=== PATIENT | male | born 1985 | race Caucasian/White ===

== ENCOUNTER 2021-07-29 19:29 | Emergency (ER) | payer MEDICARE, OTHER ==
[2021-07-29] MEDS ORDERED: diphenhydrAMINE 50 MG/ML 1 ML VIAL IVP STA (19:37)
[2021-07-29] MEDS ORDERED: KETOROLAC 15 MG/ML 1 ML VIAL IM STA (19:37)
[2021-07-29 19:40] VITALS: RESP 18; TEMP 97.9
[2021-07-29 19:59] LABS: Basophils # (A) 0.1 k/uL (0-0.2); Basophils % (A) 1 %; Eosinophils # (A) 0.3 k/uL (0-0.7); Eosinophils % (A) 7 %; HCT 38.7 % (39.0-53.0); HGB 12.4 gm/dL (13.0-17.5); Lymphocytes # (A) 2.3 k/uL (1.0-4.8); Lymphocytes % (A) 48 %; MCH 27.8 pg (25.0-35.0); MCHC 31.9 g/dL (31.0-37.0); MCV 87.1 fL (80.0-100.0); Mean Platelet Volume 7.4; Monocytes # (A) 0.2 k/uL (0-1.0); Monocytes % (A) 5 %; Neutrophils # (A) 1.8 k/uL (1.3-7.7); Neutrophils % (A) 37 %; Platelet Count 188 k/uL (150-450); RBC 4.44 m/uL (4.30-5.90); RDW 13.1 % (11.5-15.5); WBC 4.8 k/uL (3.8-10.6)
[2021-07-29 20:09] LABS: Partial Thromboplastin Time 24.7 sec (22.0-30.0); Prothrombin Time 10.4 sec (9.0-12.0)
[2021-07-29 20:15] LABS: ALT 35 U/L (4-49); AST 35 U/L (17-59); African American GFR (CKD) >90 (>60 ml/min/1.73 sqM); Albumin 4.2 g/dL (3.5-5.0); Alkaline Phosphatase 82 U/L (38-126); Anion Gap 6 mmol/L; Blood Urea Nitrogen 20 mg/dL (9-20); Carbon Dioxide 32 mmol/L (22-30); Chloride 104 mmol/L (98-107); Glucose 60 mg/dL (74-99); Lipase 51 U/L (23-300); Magnesium 2.3 mg/dL (1.6-2.3); Non-African American GFR(CKD) >90 (>60 ml/min/1.73 sqM); Potassium 3.9 mmol/L (3.5-5.1); Sodium 142 mmol/L (137-145); Total Bilirubin 0.2 mg/dL (0.2-1.3); Total Protein 7.3 g/dL (6.3-8.2)
--- NOTE | 2021-07-29 20:32 | XR ---
EXAMINATION TYPE: XR chest 2V DATE OF EXAM: 07/29/2021 COMPARISON: NONE HISTORY: Chest pain TECHNIQUE: 2 views FINDINGS: Heart and mediastinum are normal. Lungs are clear. Diaphragm is normal. Bony thorax appears normal. IMPRESSION: Normal chest
--- NOTE | 2021-07-29 20:38 | ED ---
Chest Pain HPI - General Chief Complaint: Chest Pain Stated Complaint: Chest Pain Source: EMS Mode of arrival: EMS - History of Present Illness Initial Comments: 35-year-old male with past medical history of polysubstance abuse presents to the emergency department from [facility]. Patient began having chest pain around 6:30 PM. He describes it as a sharp substernal pain with radiation to his left arm. 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 Denies history of coronary disease. No family history of sudden cardiac . Denies pleuritic chest pain. Nonreproducible outpatient. No associated fevers, chills or cough. No calf pain or swelling. No history of DVT or PE. No other alleviating, precipitating or modifying factors - Related Data Home Medications Medication Instructions Recorded Confirmed ARIPiprazole [Abilify] 20 mg PO HS 07/29/21 07/29/21 Acetaminophen [Tylenol] 650 mg PO TID PRN 07/29/21 07/29/21 Buprenorphine HCl/Naloxone HCl 1 tab SUBLINGUAL BID@0615,1630 07/29/21 07/29/21 [Buprenorphine-Nalox 8-2 mg Tab] Calcium, Magnesium, Zinc, With 1 tab PO TID PRN 07/29/21 07/29/21 Vitamin D Chlorpheniramine Maleate 4 mg PO Q4H PRN 07/29/21 07/29/21 Docusate [Colace] 100 mg PO BID PRN 07/29/21 07/29/21 Hyoscyamine Sulfate [Levsin] 0.125 mg PO QID PRN 07/29/21 07/29/21 Ibuprofen [Motrin Ib] 600 mg PO Q6H PRN 07/29/21 07/29/21 Mag Hydrox/Aluminum Hyd/Simeth 30 ml PO Q4H PRN 07/29/21 07/29/21 [Mylanta Maximum Strength Liq] Magnesium Hydroxide [Milk of 2,400 mg PO BID PRN 07/29/21 07/29/21 Magnesia] Mirtazapine [Remeron] 15 - 30 mg PO HS 07/29/21 07/29/21 Nicotine 21Mg/24Hr Patch [Habitrol] 1 patch TRANSDERM DAILY@0615 07/29/21 07/29/21 OLANZapine [ZyPREXA] 10 mg PO HS@2100 07/29/21 07/29/21 Pantoprazole [Protonix] 40 mg PO HS@2100 07/29/21 07/29/21 buPROPion HCL [Wellbutrin SR] 200 mg PO BID@0615,1630 07/29/21 07/29/21 busPIRone HCl [Buspar] 20 mg PO BID@0615,1630 07/29/21 07/29/21 ondansetron HCL [Zofran] 8 mg PO QID PRN 07/29/21 07/29/21 Allergies Allergy/AdvReac Type Severity Reaction Status Date / Time peanut Allergy Unknown Verified 07/29/21 21:28 Review of Systems ROS Statement: Those systems with pertinent positive or pertinent negative responses have been documented in the HPI. ROS Other: All systems not noted in ROS Statement are negative. EKG Findings - EKG Comments: EKG Findings:: EKG demonstrates a sinus rhythm with a rate of 86. WA interval 172. QRS 141. QTC of 423. There is an intraventricular conduction delay. No acute ST segment elevation. Inverted T-wave in lead 3. Course Vital Signs 07/29/21 07/29/21 07/29/21 19:35 21:05 22:35 Temperature 97.9 F Pulse Rate 86 76 80 Respiratory 18 18 18 Rate Blood Pressure 130/91 134/78 140/80 O2 Sat by Pulse 100 98 98 Oximetry Chest Pain MDM - MDM Upon arrival patient was placed into room 8. A thorough history and physical exam is performed. IV access established laboratory studies are conducted. Chest x-rays performed. I did review the patient's labs which demonstrates a glucose of 60. Patient is given something to eat. I did repeat a troponin which was negative after 3 hours. I did discuss diagnosis, differential and treatment options. Patient feels comfortable with discharge back to [facility] at this time. He is to follow up with his primary care doctor for further stress testing and echo. Return for any new or worsening symptoms. Patient was discharged in stable condition Disposition Clinical Impression: Chest pain Disposition: HOME SELF-CARE Condition: Stable Instructions (If sedation given, give patient instructions): Chest Pain (ED) Additional Instructions: Please follow-up with your primary care doctor. I recommend a stress test and an echo. Return to the emergency room for any new or worsening symptoms Is patient prescribed a controlled substance at d/c from ED?: No Referrals: Nonstaff,Physician [Primary Care Provider] - 1-2 days Time of Disposition: 22:15
[2021-07-29 22:36] VITALS: BP 140/80; PULSE 80
== END 2021-07-29 23:31 | disposition home or self-care (01) ==
LOC: EC 19:29
DX: R07.89 Other chest pain (principal)
CPT/HCPCS: 36415; 93005; 80053; 83690; 83735; 84484; 85025; 85610; 85730; 86140; 71046; 99285; 96374; 96372; J1200; J1885

== ENCOUNTER 2022-06-28 23:33 | Inpatient (IN) | payer MEDICARE, MEDICAID ==
[2022-06-28] MEDS ORDERED: MAGNESIUM HYDROXIDE 2,400 MG/10 ML CUP PO PRN (23:45)
[2022-06-28] MEDS ORDERED: LORazepam 1 MG TAB PO PRN (23:45)
[2022-06-28] MEDS ORDERED: MAG HYDROX/AL HYDROX/SIMETH 30 ML CUP PO PRN (23:45)
[2022-06-28] MEDS ORDERED: ACETAMINOPHEN TAB 325 MG TAB PO PRN (23:45)
[2022-06-28] MEDS ORDERED: chlorproMAZINE 25 MG TAB PO PRN (23:47)
[2022-06-28] MEDS ORDERED: chlorproMAZINE 25 MG/ML 2 ML AMP IM PRN (23:47)
[2022-06-28] MEDS ORDERED: LORazepam 2 MG/ML INJ IM PRN (23:47)
--- NOTE | 2022-06-29 03:44 | P.PN ---
Progress Note - Text Progress Note Date: 06/29/22 new consult , patient sedated and could not be evaluated at this time
[2022-06-29] MEDS: NICOTINE 14MG/24HR PATCH TRANSDERM SCH (08:24)
[2022-06-29] MEDS ORDERED: buPROPion SR 150 MG TABLET.ER PO STA (10:59)
[2022-06-29] MEDS: NICOTINE GUM (POLACRILEX) 2 MG GUM BUCCAL PRN ×3 (11:32→19:38)
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
[2022-06-29] MEDS: ETODOLAC 400 MG TAB PO PRN ×2 (12:21→19:39)
[2022-06-29] MEDS: hydrOXYzine pamoate 25 MG CAP PO PRN ×2 (12:25→19:38)
[2022-06-29] MEDS: buPROPion SR 150 MG TABLET.ER PO SCH (15:13)
[2022-06-29] MEDS: QUEtiapine 200 MG TAB PO SCH (19:38)
--- NOTE | 2022-06-29 22:53 | P.CONS ---
History of Present Illness - Reason for Consult Consult date: 06/29/22 - History of Present Illness The patient is a 36-year-old male with a PMH of hypertension, hepatitis C, borderline personality disorder, and polysubstance abuse who was transferred from [facility] where the patient had been admitted for depression with suicidal ideation and substance abuse. The patient was seen in the mental health unit. Patient reports that he has been struggling with his substance use which includes methamphetamines and fentanyl. He reports that he wishes to quit. He also smokes one and a half pack of cigarettes daily. Denies any physical complaints at the time of interview. Denied experiencing chest discomfort, shortness of breath, fever, chills, cough, nausea, vomiting, abdominal pain, diarrhea. Review of systems: Pertinent positives and negatives as discussed in HPI, a complete review of systems was performed and all other systems are negative. Physical examination: General: non toxic, no distress, appears at stated age, obese Derm: no unusual rashes/lesions, no unusual ecchymoses, warm, dry Head: atraumatic, normocephalic, symmetric Eyes: EOMI, no lid lag, anicteric sclera ENT: Nose and ears atraumatic, no thrush, no pharyngeal erythema Neck: trachea midline, supple Mouth: no lip lesion, mucus membranes moist Cardiovascular: S1S2 reg, no murmur, no edema Lungs: CTA bilateral, no rhonchi, no rales , no accessory muscle use Abdominal: soft, nontender to palpation, no guarding Ext: no gross muscle atrophy, no contractures, Neuro: No gross focal neuro deficits noted Psych: Alert, oriented, appropriate affect Assessment: Polysubstance abuse Tobacco abuse Depression and suicidal ideation Hypertension Hepatitis C Imaging: None performed Data Review: Laboratory evaluation pending Plan: Advised patient on the importance of cessation from substance use The patient's blood pressure is currently controlled without antihypertensives. Continue to monitor for now Advised patient to follow-up with commercial carpet installer or commercial credit officer as an outpatient for hepatitis C Defer management of depression and suicidal ideation to primary psychiatry service Thank you for allowing us to participate in the care of this patient. We will follow peripherally. Do not hesitate to contact us with questions. Someone can be reached from the [facility] hospitalist group at all hours of the day at [phone]. Past Medical History History of Any Multi-Drug Resistant Organisms: MRSA Year Discovered:: 07/19/21 MDRO Source:: Left ankle Past Anesthesia/Blood Transfusion Reactions: No Reported Reaction Past Psychological History: Depression Smoking Status: Current every day smoker Past Alcohol Use History: Occasional Past Drug Use History: Heroin, Methamphetamine Additional Drug Use History / Comment(s): patient states he last used heroin and meth 06/25/22 - Past Family History Father History Unknown: Yes Mother History Unknown: Yes Family Medical History: CVA/TIA Medications and Allergies Home Medications Medication Instructions Recorded Confirmed Type buPROPion HCL [Wellbutrin SR] 200 mg PO BID 07/29/21 06/29/22 History Etodolac [Lodine] 400 mg PO TID 06/29/22 06/29/22 History QUEtiapine [SEROquel] 200 mg PO HS 06/29/22 06/29/22 History Allergies Allergy/AdvReac Type Severity Reaction Status Date / Time bee venom protein (honey bee) Allergy Unknown Verified 06/29/22 12:09 ciprofloxacin [From Cipro] Allergy Unknown Verified 06/29/22 12:09 haloperidol [From Haldol] Allergy Unknown Verified 06/29/22 12:09 levofloxacin Allergy Unknown Verified 06/29/22 12:09 peanut Allergy Unknown Verified 06/29/22 12:09 Penicillins Allergy Unknown Verified 06/29/22 12:09 Physical Exam Vitals: Vital Signs Temp Pulse Resp BP Pulse Ox 06/29/22 03:19 97.8 F 83 18 132/67 98 Intake and Output 06/29/22 06/29/22 06/29/22 06:59 14:59 22:59 Other: Weight 127.913 kg
[2022-06-30] MEDS: buPROPion SR 150 MG TABLET.ER PO SCH ×2 (07:53→14:18)
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
[2022-06-30] MEDS: NICOTINE 14MG/24HR PATCH TRANSDERM SCH (11:49)
[2022-06-30] MEDS: ETODOLAC 400 MG TAB PO PRN ×2 (14:18→20:33)
[2022-06-30] MEDS: NICOTINE GUM (POLACRILEX) 2 MG GUM BUCCAL PRN ×2 (15:16→19:16)
[2022-06-30] MEDS: hydrOXYzine pamoate 25 MG CAP PO PRN (16:05)
[2022-06-30] MEDS: QUEtiapine 200 MG TAB PO SCH (20:12)
[2022-07-01] MEDS: NICOTINE GUM (POLACRILEX) 2 MG GUM BUCCAL PRN ×3 (07:25→16:36)
[2022-07-01] MEDS: buPROPion SR 150 MG TABLET.ER PO SCH ×2 (07:25→14:00)
--- NOTE | 2022-07-01 07:28 | P.PN ---
Subjective Progress Note Date: 07/01/22 Principal diagnosis: major depressive disorder Subjective: The patient says that although Seroquel with Wellbutrin work to keep his mood stable he still does not sleep well. He says he soon adjusts to the soporific effects of Seroquel and then can't sleep. He has been as high as 600 mg of Seroquel and then he just gets dry mouth. He has tried melatonin 10 mg for 3 or 4 weeks with no benefit he says trazodone backfires. Objective: Patient does look sleepy is yawning an operative fairly early hour. He is cooperative, somewhat decreased eye contact, minimal but adequate self- care, gait and station normal, has been cooperating in the program no aggression he denies any psychotic symptoms or suicidality. Assessment: Normally trouble sleeping is a bad sign for control of moods. And for stability after discharge it might be denise to increase just a little but not to 600 due to anticholinergic side effects. Plan increase Seroquel to 400 continue Wellbutrin he did not want to add in any melatonin he would probably be denise if he went to a program that counseled on sleep hygiene I did review some of these details. Objective - Vital Signs Vital signs: Vital Signs Temp 97.7 F 07/01/22 06:56 Pulse 77 07/01/22 06:56 Resp 16 07/01/22 06:56 BP 116/75 07/01/22 06:56 Pulse Ox 98 06/30/22 01:57 FiO2
[2022-07-01] MEDS ORDERED: BENZOCAINE 20 % GEL 11.9 GM TUBE MM ONE (08:45)
[2022-07-01] MEDS: NICOTINE 14MG/24HR PATCH TRANSDERM SCH (09:34)
[2022-07-01] MEDS: hydrOXYzine pamoate 25 MG CAP PO PRN (10:54)
[2022-07-01] MEDS: QUEtiapine 200 MG TAB PO SCH (19:40)
[2022-07-02] MEDS: buPROPion SR 150 MG TABLET.ER PO SCH ×2 (07:30→15:26)
[2022-07-02] MEDS: NICOTINE 14MG/24HR PATCH TRANSDERM SCH (08:59)
[2022-07-02] MEDS: hydrOXYzine pamoate 25 MG CAP PO PRN (08:59)
--- NOTE | 2022-07-02 11:21 | P.PN ---
Progress Note - Text Progress Note Date: 07/02/22 Interval History: Patient was seen wandering the hallways and was directable and agreeable to speak with magnetic tape typewriter operator in the office. Currently, the patient is not reporting any suicidal or homicidal ideation, intention, and/or plan. He is not reporting any auditory or visual hallucinations. He denies any paranoia or other delusions. He has been adherent with his medication is not endorsing any significant side effects. He remains future and goal oriented and is planning to go to [facility] for rehab tomorrow. He states that he wants to make a difference in his life and quit substances. He denies any chest pain, shortness of breath, palpitations, or any other problems at this time. He reports no issues regarding his sleep or his appetite. Mental Status Exam: General Appearance: Patient appears to be stated age is alert, directable, and cooperative. Behavior: Patient is calmly seated without any agitated behavior. Speech: Patient's speech is fluent and nonpressured. Mood/Affect: Mood is improving mildly, affect is congruent and constricted. Suicidality/Homicidality: Patient denies having any suicidal or homicidal ideation intent or plan. Perceptions: Patient denies any visual hallucinations and denies any auditory hallucinations Though content/process: There is no evidence of any delusional thought content and thought process is linear and goal-directed. Memory and concentration: AOX3, grossly intact for the purposes of this session Judgment and insight: Improving mildly Vital Signs Temp 97 F L 07/02/22 06:32 Pulse 80 07/02/22 06:32 Resp 16 07/02/22 06:32 BP 157/74 07/02/22 06:32 Pulse Ox 98 06/30/22 01:57 FiO2 Intake & Output 07/01/22 07/02/22 07/02/22 18:59 06:59 18:59 Weight 128 kg Assessment Major depressive disorder, recurrent, severe Polysubstance use disorder including methamphetamines, fentanyl, cocaine, marijuana, and tobacco Cluster B personality disorder Rule out PTSD Plan: -Patient continues to meet criteria for inpatient psychiatric admission for symptom stabilization and safety. Patient has signed adult voluntary form and medication consent and was placed in patient's chart. -Medications: Wellbutrin 150 mg by mouth twice a day for depression Seroquel 400 mg by mouth at bedtime for mood augmentation/mood stabilization -When necessary Vistaril and Thorazine for agitation/aggression. -NRT - nicotine patch and Nicorette gum -SW on board for discharge planning. Encouraged the patient to participate in milieu.
[2022-07-02] MEDS: NICOTINE GUM (POLACRILEX) 2 MG GUM BUCCAL PRN ×3 (12:01→19:55)
[2022-07-02] MEDS: QUEtiapine 200 MG TAB PO SCH (19:55)
[2022-07-03 06:57] VITALS: BP 113/56; PULSE 79; RESP 18; TEMP 97.1
[2022-07-03] MEDS: NICOTINE GUM (POLACRILEX) 2 MG GUM BUCCAL PRN ×2 (08:04→11:57)
[2022-07-03] MEDS: NICOTINE 14MG/24HR PATCH TRANSDERM SCH (08:30)
[2022-07-03] MEDS: buPROPion SR 150 MG TABLET.ER PO SCH (08:36)
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
[2022-07-03] MEDS ORDERED: buPROPion SR 150 MG TABLET.ER PO ONE (12:45)
== END 2022-07-03 13:19 | disposition other institution (70) | DRG 885 ==
LOC: 3MHU 06-29 02:55
PROVIDERS: ADMIT Psychiatry & Neurology Psychiatry; ATTEND Psychiatry & Neurology Psychiatry
DX: F33.2 Major depressive disorder, recurrent severe without psychotic features (principal); F11.20 Opioid dependence, uncomplicated; F15.20 Other stimulant dependence, uncomplicated; R45.851 Suicidal ideations; F12.10 Cannabis abuse, uncomplicated; F14.10 Cocaine abuse, uncomplicated; B19.20 Unspecified viral hepatitis C without hepatic coma; Z71.51 Drug abuse counseling and surveillance of drug abuser; I10 Essential (primary) hypertension; F17.210 Nicotine dependence, cigarettes, uncomplicated; G47.00 Insomnia, unspecified; Z79.899 Other long term (current) drug therapy; Z91.410 Personal history of adult physical and sexual abuse; Z91.51 Personal history of suicidal behavior; Z88.1 Allergy status to other antibiotic agents; Z91.030 Bee allergy status; Z88.0 Allergy status to penicillin; Z91.010 Allergy to peanuts

== ENCOUNTER 2022-07-13 13:09 | Emergency (ER) | payer MEDICARE, OTHER ==
[2022-07-13 13:14] VITALS: TEMP 98.9
[2022-07-13] MEDS ORDERED: LORazepam 2 MG/ML INJ IM STA (13:50)
--- NOTE | 2022-07-13 13:52 | ED ---
General Adult HPI - General Source: patient Mode of arrival: ambulatory Limitations: no limitations <Irving Loyola - Last Filed: 07/13/22 20:11> <Roberto Méndez - Last Filed: 07/14/22 04:49> - General Chief complaint: Anxiety Stated complaint: MENTAL HEALTH Time Seen by Provider: 07/13/22 13:16 - History of Present Illness Initial comments: Dictation was produced using [employer] dictation software. please excuse any grammatical, word or spelling errors. Chief Complaint: 36-year-old male presents emergency department for anxiety any geovani History of Present Illness: An 36-year-old male presents to emergency department for chief complaint of anxiety and manic feeling. Patient states she has history of methamphetamine use. States that he bought 2 pills from the pharmacy [id number]. States that's medicine he took was used to treat nasal congestion. States that it comes and a cotton form and this swallow it. Patient states he took it in order to have fun. The ROS documented in this emergency department record has been reviewed and confirmed by me. Those systems with pertinent positive or negative responses have been documented in the HPI. All other systems are other negative and/or noncontributory. (Irving Loyola) - Related Data Previous Rx's Medication Instructions Recorded Etodolac [Lodine] 400 mg PO QID PRN 12 Days #3 tab 07/02/22 QUEtiapine [SEROquel] 400 mg PO HS 30 Days #60 tab 07/02/22 buPROPion SR [Wellbutrin SR] 150 mg PO BID@0800,1500 30 Days 07/02/22 #60 tab Allergies Allergy/AdvReac Type Severity Reaction Status Date / Time bee venom protein (honey bee) Allergy Unknown Verified 07/13/22 13:59 ciprofloxacin [From Cipro] Allergy Unknown Verified 07/13/22 13:59 haloperidol [From Haldol] Allergy Unknown Verified 07/13/22 13:59 levofloxacin Allergy Unknown Verified 07/13/22 13:59 peanut Allergy Unknown Verified 07/13/22 13:59 Penicillins Allergy Unknown Verified 07/13/22 13:59 Review of Systems ROS Other: All systems not noted in ROS Statement are negative. <Irving Loyola - Last Filed: 07/13/22 20:11> ROS Other: All systems not noted in ROS Statement are negative. <Roberto Méndez - Last Filed: 07/14/22 04:49> ROS Statement: Those systems with pertinent positive or pertinent negative responses have been documented in the HPI. Past Medical History Past Medical History: Myocardial Infarction ([place]) History of Any Multi-Drug Resistant Organisms: MRSA Date of last positivie culture/infection: 07/19/21 MDRO Source:: Left ankle Past Surgical History: Heart Catheterization With Stent, Orthopedic Surgery Additional Past Surgical History / Comment(s): neck, rt leg Past Anesthesia/Blood Transfusion Reactions: No Reported Reaction Past Psychological History: Depression Smoking Status: Current every day smoker Past Alcohol Use History: Occasional Past Drug Use History: Heroin, Methamphetamine - Past Family History Father History Unknown: Yes Mother History Unknown: Yes Family Medical History: CVA/TIA <Irving Loyola - Last Filed: 07/13/22 20:11> General Exam Limitations: no limitations <Irving Loyola - Last Filed: 07/13/22 20:11> - General Exam Comments Initial Comments: PHYSICAL EXAM: General Impression: Alert and oriented x3, agitated, scratching hhisself vigorously HEENT: Normocephalic atraumatic, extra-ocular movements intact, pupils equal and reactive to light bilaterally, mucous membranes moist. Cardiovascular: Heart regular rate and rhythm Chest: Able to complete full sentences, no retractions, no tachypnea Abdomen: abdomen soft, non-tender, non-distended, no organomegaly Musculoskeletal: Pulses present and equal in all extremities, no peripheral edema Motor: no focal deficits noted Neurological: CN II-XII grossly intact, no focal motor or sensory deficits noted Skin: Intact with no visualized rashes Psych: Agitated (Irving Loyola) Course Vital Signs 07/13/22 07/13/22 07/13/22 13:11 18:06 19:21 Temperature 98.9 F Pulse Rate 94 93 Respiratory 20 18 16 Rate Blood Pressure 110/53 145/65 O2 Sat by Pulse 96 95 Oximetry Medical Decision Making - Lab Data Result diagrams: 07/13/22 14:03 07/13/22 14:03 <Irving Loyola - Last Filed: 07/13/22 20:11> - Lab Data Result diagrams: 07/13/22 14:03 07/13/22 14:03 <Roberto Méndez - Last Filed: 07/14/22 04:49> - Medical Decision Making Was pt. sent in by a medical professional or institution ([facility], FLOOR POLISHER, urgent care, hospital, or [facility]...) When possible be specific @ -No Did you speak to anyone other than the patient for history (EMS, parent, family, police, friend...)? What history was obtained from this source @ -No Did you review nursing and triage notes (agree or disagree)? Why? @ -I reviewed and agree with nursing and triage notes Were old charts reviewed (outside hosp., previous admission, EMS record, old EKG, old radiological studies, urgent care reports/EKG's, [facility] records)? Report findings @ -Previous psychiatric notes were reviewed showing the patient to be admitted to inpatient psych in the past. Differential Diagnosis (chest pain, altered mental status, abdominal pain women, abdominal pain men, vaginal bleeding, musculoskeletal, weakness, fever, dyspnea, syncope, headache, dizziness, GI bleed, back pain, seizure, CVA, palpatations, mental health)? @ -not applicable EKG interpreted by me (3pts min.). @ -None done X-rays interpreted by me (1pt min.). @ -None done CT interpreted by me (1pt min.). @ -None done U/S interpreted by me (1pt. min.). @ -None done What testing was considered but not performed or refused? (CT, X-rays, U/S, labs)? Why? @ -None What meds were considered but not given or refused? Why? @ -None Did you discuss the management of the patient with other professionals (professionals i.e. [facility]over, FLOOR POLISHER, lab, RT, psych nurse, social insurance specialist, proofer apprentice, teacher, grants officer, case management director)? Give summary @ -No Was smoking cessation discussed for >3mins.? @ -No Was critical care preformed (if so, how long)? @ -No Were there social determinants of health that impacted care today? How? (Homelessness, low income, unemployed, alcoholism, drug addiction, transportation, low edu. Level, literacy, decrease access to med. care, care home, rehab)? @ -No Was there de-escalation of care discussed even if they declined (Discuss DNR or withdrawal of care, Hospice)? DNR status @ -No What co-morbidities impacted this encounter? (DM, HTN, Smoking, COPD, CAD, Cancer, CVA, ARF, Chemo, Hep., AIDS, mental health diagnosis, sleep apnea, morbid obesity)? @ -None Was patient admitted / discharged? Hospital course, mention meds given and route, prescriptions, significant lab abnormalities, going to OR and other pertinent info. @ -36-year-old male here for psychiatric issue. Patient did appear to be intoxicated on sympathomimetics likely methamphetamines. Vital signs upon arrival are stable. Blood work drawn findings within acceptable limits. Patient was significantly agitated. He is given 20 mg of IM Geodon. Patient pending sobriety for EPS evaluation. Undiagnosed new problem with uncertain prognosis? @ -No Drug Therapy requiring intensive monitoring for toxicity (Heparin, Nitro, Insulin, Cardizem)? @ -No Were any procedures done? @ -No Diagnosis/symptom? Acute, or Chronic, or Acute on Chronic? Uncomplicated (without systemic symptoms) or Complicated (systemic symptoms)? @ -1. Acute psychosis Side effects of treatment? @ -No Exacerbation, Progression, or Severe Exacerbation? @ -No Poses a threat to life or bodily function? How? (Chest pain, [place], [place], pneumonia, PE, COPD, DKA, ARF, appy, cholecystitis, CVA, Diverticulitis, Homicidal, Suicidal, threat to staff... and all critical care pts) @ -yes (Irving Loyola) Patient signed out to me pending EPS evaluation. EPS evaluated the patient, and determined that the does not meet inpatient psychiatric criteria. Recommended discharge home with a safety plan. Patient was discharged home in stable condition. (Roberto Méndez) - Lab Data Lab Results 07/13/22 07/13/22 Range/Units 14:03 14:03 WBC 12.4 H (3.8-10.6) k/uL RBC 5.04 (4.30-5.90) m/uL Hgb 14.4 (13.0-17.5) gm/dL Hct 43.3 (39.0-53.0) % MCV 85.9 (80.0-100.0) fL MCH 28.6 (25.0-35.0) pg MCHC 33.3 (31.0-37.0) g/dL RDW 13.0 (11.5-15.5) % Plt Count 320 (150-450) k/uL MPV 6.8 Neutrophils % 75 % Lymphocytes % 16 % Monocytes % 5 % Eosinophils % 2 % Basophils % 0 % Neutrophils # 9.3 H (1.3-7.7) k/uL Lymphocytes # 1.9 (1.0-4.8) k/uL Monocytes # 0.7 (0-1.0) k/uL Eosinophils # 0.2 (0-0.7) k/uL Basophils # 0.0 (0-0.2) k/uL Sodium 138 (137-145) mmol/L Potassium 4.1 (3.5-5.1) mmol/L Chloride 102 (98-107) mmol/L Carbon Dioxide 27 (22-30) mmol/L Anion Gap 9 mmol/L BUN 19 (9-20) mg/dL Creatinine 0.90 (0.66-1.25) mg/dL Est GFR (CKD-EPI)AfAm >90 (>60 ml/min/1.73 sqM) Est GFR (CKD-EPI)NonAf >90 (>60 ml/min/1.73 sqM) Glucose 86 (74-99) mg/dL Calcium 8.7 (8.4-10.2) mg/dL Serum Alcohol <10 mg/dL Disposition <Irving Loyola - Last Filed: 07/13/22 20:11> Is patient prescribed a controlled substance at d/c from ED?: No Time of Disposition: 02:00 <Roberto Méndez - Last Filed: 07/14/22 04:49> Clinical Impression: Acute psychosis, Encounter for psychiatric assessment Disposition: HOME SELF-CARE Condition: Good Instructions (If sedation given, give patient instructions): Generalized Anxiety Disorder (ED) Additional Instructions: follow safety plan Referrals: None,Stated [Primary Care Provider] - 1-2 days
[2022-07-13 14:08] LABS: Basophils % (A) 0 %; Eosinophils # (A) 0.2 k/uL (0-0.7); Eosinophils % (A) 2 %; HCT 43.3 % (39.0-53.0); HGB 14.4 gm/dL (13.0-17.5); Lymphocytes # (A) 1.9 k/uL (1.0-4.8); Lymphocytes % (A) 16 %; MCH 28.6 pg (25.0-35.0); MCHC 33.3 g/dL (31.0-37.0); MCV 85.9 fL (80.0-100.0); Mean Platelet Volume 6.8; Monocytes # (A) 0.7 k/uL (0-1.0); Monocytes % (A) 5 %; Neutrophils # (A) 9.3 k/uL (1.3-7.7); Neutrophils % (A) 75 %; Platelet Count 320 k/uL (150-450); RBC 5.04 m/uL (4.30-5.90); WBC 12.4 k/uL (3.8-10.6)
[2022-07-13 14:34] LABS: African American GFR (CKD) >90 (>60 ml/min/1.73 sqM); Alcohol <10 mg/dL; Anion Gap 9 mmol/L; Blood Urea Nitrogen 19 mg/dL (9-20); Calcium 8.7 mg/dL (8.4-10.2); Carbon Dioxide 27 mmol/L (22-30); Chloride 102 mmol/L (98-107); Glucose 86 mg/dL (74-99); Non-African American GFR(CKD) >90 (>60 ml/min/1.73 sqM); Potassium 4.1 mmol/L (3.5-5.1); Sodium 138 mmol/L (137-145)
[2022-07-13] MEDS ORDERED: LORazepam 1 MG TAB PO STA (15:29)
[2022-07-13] MEDS ORDERED: ZIPRASIDONE 20 MG VIAL IM STA (18:02)
[2022-07-13 18:09] VITALS: BP 145/65; PULSE 93
[2022-07-13 19:22] VITALS: RESP 16
== END 2022-07-14 02:10 | disposition home or self-care (01) ==
LOC: EC 13:09
DX: Z00.8 Encounter for other general examination (principal); I25.2 Old myocardial infarction; F32.A Depression, unspecified; F17.200 Nicotine dependence, unspecified, uncomplicated; Z91.030 Bee allergy status; Z91.018 Allergy to other foods; Z88.0 Allergy status to penicillin; Z88.8 Allergy status to other drugs, medicaments and biological substances
CPT/HCPCS: 82075; 36415; 80048; 85025; 99284; 96372 ×2; G0480; J2060; J3486; 80320

== ENCOUNTER 2022-07-16 13:51 | Emergency (ER) | payer MEDICARE, OTHER ==
[2022-07-16 14:07] VITALS: PULSE 99; TEMP 98.2
[2022-07-16 14:44] LABS: Amphetamine Screen,Urine Not Detected (NotDetected); Barbiturate Screen,Urine Not Detected (NotDetected); Benzodiazepines Screen,Urine Not Detected (NotDetected); Cocaine Screen,Urine Not Detected (NotDetected); Methadone Screen, Urine Not Detected (NotDetected); Opiate Screen,Urine Not Detected (NotDetected); Oxycodone Screen, Urine Not Detected (NotDetected); Phencyclidine Screen,Urine Not Detected (NotDetected); Tricyclic Antidepressant,Urine Detected (NotDetected); Urn Cannabinoid Scrn Detected (NotDetected)
--- NOTE | 2022-07-16 17:42 | ED ---
General Adult HPI - General Chief complaint: Psychiatric Symptoms Stated complaint: mental health Time Seen by Provider: 07/16/22 15:06 Source: patient Mode of arrival: ambulatory Limitations: no limitations - History of Present Illness Initial comments: 36-year-old male with a past medical history significant for major depression and polysubstance abuse presents to the emergency department with chief complaint of suicidal ideation. Patient reports that he has had multiple plans in order to commit suicide. He notes worsening feelings since yesterday. He reports that he takes medications for his depression has been taking them as prescribed. He reports that he would walk into incoming traffic or shoot himself with a gun or overdose on pills in order to kill himself. He denies any homicidal ideation. He denies any visual or auditory hallucinations. He does report recent alcohol use. He reports he drank a fifth of by a ball prior to arrival. He denies dizziness, lightheadedness, headache, vision changes, chest pain shortness of breath, abdominal pain. - Related Data Previous Rx's Medication Instructions Recorded Etodolac [Lodine] 400 mg PO QID PRN 12 Days #3 tab 07/02/22 QUEtiapine [SEROquel] 400 mg PO HS 30 Days #60 tab 07/02/22 buPROPion SR [Wellbutrin SR] 150 mg PO BID@0800,1500 30 Days 07/02/22 #60 tab Allergies Allergy/AdvReac Type Severity Reaction Status Date / Time bee venom protein (honey bee) Allergy Unknown Verified 07/16/22 15:33 ciprofloxacin [From Cipro] Allergy Unknown Verified 07/16/22 15:33 haloperidol [From Haldol] Allergy Unknown Verified 07/16/22 15:33 levofloxacin Allergy Unknown Verified 07/16/22 15:33 peanut Allergy Unknown Verified 07/16/22 15:33 Penicillins Allergy Unknown Verified 07/16/22 15:33 Review of Systems ROS Statement: Those systems with pertinent positive or pertinent negative responses have been documented in the HPI. ROS Other: All systems not noted in ROS Statement are negative. Past Medical History Past Medical History: Myocardial Infarction (CO) History of Any Multi-Drug Resistant Organisms: MRSA Date of last positivie culture/infection: 07/19/21 MDRO Source:: Left ankle Past Surgical History: Heart Catheterization With Stent, Orthopedic Surgery Additional Past Surgical History / Comment(s): neck, rt leg Past Anesthesia/Blood Transfusion Reactions: No Reported Reaction Past Psychological History: Depression Smoking Status: Current every day smoker Past Alcohol Use History: Occasional Past Drug Use History: Heroin, Methamphetamine - Past Family History Father History Unknown: Yes Mother History Unknown: Yes Family Medical History: CVA/TIA General Exam Limitations: no limitations General appearance: alert, in no apparent distress Head exam: Present: atraumatic, normocephalic, normal inspection Eye exam: Present: normal appearance, PERRL, EOMI. Absent: scleral icterus, conjunctival injection, periorbital swelling ENT exam: Present: normal exam, mucous membranes moist Neck exam: Present: normal inspection. Absent: tenderness, meningismus, lymphadenopathy Respiratory exam: Present: normal lung sounds bilaterally. Absent: respiratory distress, wheezes, rales, rhonchi, stridor Cardiovascular Exam: Present: regular rate, normal rhythm, normal heart sounds. Absent: systolic murmur, diastolic murmur, rubs, gallop, clicks GI/Abdominal exam: Present: soft, normal bowel sounds. Absent: distended, tenderness, guarding, rebound, rigid Extremities exam: Present: normal inspection, full ROM, normal capillary refill. Absent: tenderness, pedal edema, joint swelling, calf tenderness Back exam: Present: normal inspection Neurological exam: Present: alert, oriented X3, CN II-XII intact Psychiatric exam: Present: normal affect, normal mood Skin exam: Present: warm, dry, intact, normal color. Absent: rash Course Vital Signs 07/16/22 07/16/22 13:55 22:00 Temperature 98.2 F Pulse Rate 99 99 Respiratory 20 16 Rate Blood Pressure 142/79 161/93 O2 Sat by Pulse 95 95 Oximetry - Reevaluation(s) Reevaluation #1: 07/16/22 16:00 patient is medically cleared. Awaiting for EPS evaluation. Reevaluation #2: 07/16/22 19:55 EPS in to evaluate the patient Medical Decision Making - Medical Decision Making Was pt. sent in by a medical professional or institution (, PA, PROTECTIVE SERVICES OFFICER, urgent care, hospital, or residential...) When possible be specific @ -[No] Did you speak to anyone other than the patient for history (EMS, parent, family, police, friend...)? What history was obtained from this source @ -[No] Did you review nursing and triage notes (agree or disagree)? Why? @ -[I reviewed and agree with nursing and triage notes] Were old charts reviewed (outside hosp., previous admission, EMS record, old EKG, old radiological studies, urgent care reports/EKG's, residential records)? Report findings @ -[No old charts were reviewed] Differential Diagnosis (chest pain, altered mental status, abdominal pain women, abdominal pain men, vaginal bleeding, weakness, fever, dyspnea, syncope, headache, dizziness, GI bleed, back pain, seizure, CVA, palpatations, mental health, musculoskeletal)? @ -[not applicable] EKG interpreted by me (3pts min.). @ -[As above] X-rays interpreted by me (1pt min.). @ -[None done] CT interpreted by me (1pt min.). @ -[None done] U/S interpreted by me (1pt. min.). @ -[None done] What testing was considered but not performed or refused? (CT, X-rays, U/S, labs)? Why? @ -[None] What meds were considered but not given or refused? Why? @ -[None] Did you discuss the management of the patient with other professionals (professionals i.e. , PA, PROTECTIVE SERVICES OFFICER, lab, RT, psych nurse, director social service, death claim clerk, teacher, radiological defense officer, case mgr)? Give summary @ -[No] Was smoking cessation discussed for >3mins.? @ -[No] Was critical care preformed (if so, how long)? @ -[No] Were there social determinants of health that impacted care today? How? (H omelessness, low income, unemployed, alcoholism, drug addiction, transportation, low edu. Level, literacy, decrease access to med. care, half-way, rehab)? @ -[No] Was there de-escalation of care discussed even if they declined (Discuss DNR or withdrawal of care, Hospice)? DNR status @ -[No] What co-morbidities impacted this encounter? (DM, HTN, Smoking, COPD, CAD, Cancer, CVA, ARF, Chemo, Hep., AIDS, mental health diagnosis, sleep apnea, morbid obesity)? @ -[None] Was patient admitted / discharged? Hospital course, mention meds given and route, prescriptions, significant lab abnormalities, going to OR and other pertinent info. @ --Discharged. This is a 36-year-old male who presents to the emergency department with suicidal ideation.. Patient had a thorough physical exam and history obtained on the ED. Physical exam is essentially unremarkable heart rate regular rate and rhythm, lungs clear to auscultation bilaterally abdomen is soft and nontender vital signs are stable. Case discussed with EPS RN who does not believe that the patient meets inpatient psychiatric management. The patient will be discharged home. Patient had lab work and imaging which were essentially unremarkable. I discussed the results in detail with the patient verbalized understanding and all questions were addressed. Return precautions were discussed at length. Patient discharged in stable condition. Case discussed with Dr. Reid Maddie who agrees with plan of care Undiagnosed new problem with uncertain prognosis? @ -[No] Drug Therapy requiring intensive monitoring for toxicity (Heparin, Nitro, Insul in, Cardizem)? @ -[No] Were any procedures done? @ -[No] Diagnosis/symptom? @ -suicidal ideation - depression - malingering behavior Acute, or Chronic, or Acute on Chronic? @ -acute Uncomplicated (without systemic symptoms) or Complicated (systemic symptoms)? @ -uncomplicated Side effects of treatment? @ -[No] Exacerbation, Progression, or Severe Exacerbation? @ -[No] Poses a threat to life or bodily function? How? (Chest pain, [place], CO, pneumonia, PE, COPD, DKA, ARF, appy, cholecystitis, CVA, Diverticulitis, Homicidal, Suic idal, threat to staff... and all critical care pts) @ -low likelihood - Lab Data Lab Results 07/16/22 Range/Units 14:13 Urine Opiates Screen Not Detected (NotDetected) Ur Oxycodone Screen Not Detected (NotDetected) Urine Methadone Screen Not Detected (NotDetected) Ur Propoxyphene Screen Not Detected (NotDetected) Ur Barbiturates Screen Not Detected (NotDetected) U Tricyclic Antidepress Detected H (NotDetected) Ur Phencyclidine Scrn Not Detected (NotDetected) Ur Amphetamines Screen Not Detected (NotDetected) U Methamphetamines Scrn Not Detected (NotDetected) U Benzodiazepines Scrn Not Detected (NotDetected) Urine Cocaine Screen Not Detected (NotDetected) U Marijuana (THC) Screen Detected H (NotDetected) Disposition Clinical Impression: Acute anxiety, Depression, Malingering Disposition: HOME SELF-CARE Condition: Stable Instructions (If sedation given, give patient instructions): Depression (ED) Additional Instructions: Please return to the nearest emergency department symptoms worsen or persist Is patient prescribed a controlled substance at d/c from ED?: No Referrals: None,Stated [Primary Care Provider] - 1-2 days Time of Disposition: 21:48
[2022-07-16] MEDS ORDERED: CALCIUM CARBONATE 500 MG CHEWABLE PO PRN (19:42)
[2022-07-16 22:04] VITALS: BP 161/93; RESP 16
== END 2022-07-16 22:00 | disposition home or self-care (01) ==
LOC: EC 13:51
DX: F32.A Depression, unspecified (principal); F41.9 Anxiety disorder, unspecified; I25.2 Old myocardial infarction; F17.200 Nicotine dependence, unspecified, uncomplicated; F11.90 Opioid use, unspecified, uncomplicated; F15.90 Other stimulant use, unspecified, uncomplicated; Z76.5 Malingerer [conscious simulation]; Z88.0 Allergy status to penicillin; Z88.1 Allergy status to other antibiotic agents; Z88.8 Allergy status to other drugs, medicaments and biological substances; Z91.010 Allergy to peanuts; Z91.030 Bee allergy status
CPT/HCPCS: 80306; 82075; 99285